=== PATIENT | female | born 1980 | race Two or more races ===

== ENCOUNTER 2024-08-29 23:15 | Emergency (ER) | payer MEDICAID, OTHER ==
[~2024-08-29] VITALS: Ht 167.6 cm; Wt 86.3 kg
[2024-08-29] MEDS: IBUPROFEN 600 MG TAB PO ONE (23:56)
--- NOTE | 2024-08-30 00:39 | DVH ---
CLINICAL INDICATION: RIGHT ANKLE SWELLING TECHNIQUE: XY R ANKLE 3 VIEW Comparison: None FINDINGS/IMPRESSION: : Obliquely oriented mildly displaced distal fibula fracture and mildly displaced fracture of the media l malleolus. Slight lateral subluxation of the talus relative to the tibial plafond. Borderline Widening of the me dial clear space which could be due to deltoid ligament injury. Moderate soft tissue swelling about the right ankle. Plantar calcaneal enthesophyte
[2024-08-30 01:44] VITALS: BP 136/86; PULSE 86; RESP 20; TEMP 98.5; O2SAT 99
[2024-08-30] MEDS ORDERED: IBUP-1456 PO (02:21)
--- NOTE | 2024-08-30 02:21 | ED.PDOC ---
Back pain HPI HPI Comments PT PRESENTED TO ED FOR RIGHT ANKLE PAIN AND SWELLING SINCE YESTERDAY S/P TWIST & FALL WHILE WEARING HIGH HEEL BOOTS. Chief Complaint: Lower Extremity Time Seen by MD: 23:21 Reviewed Notes: Nurses Notes, Medications, Allergies Allergies: Coded Allergies: No Known Drug Allergy (Verified Allergy, Unknown, 08/30/24) Home Meds Active Scripts Ibuprofen (Ibuprofen) 800 Mg Tab, 800 MG PO Q8HP PRN for 6 Days, #18 TAB Prov:KAREN DE LUNA [employer] 08/30/24 Information Source: Patient Mode of Arrival: Wheelchair Past Medical History PAST MEDICAL HISTORY: Denies Surgical History: Denies all surgeries EAR NOSE AND THROAT SPECIALIST History: No Pertinent EAR NOSE AND THROAT SPECIALIST History Family History Family History: Reviewed,noncontributory to illness Social History Smoker: Non-Smoker Alcohol: Denies ETOH Use Drugs: Denies Drug Use Constitutional: denies: chills, diaphoresis, fatigue, fever, malaise, sweats, weakness, others EENTM: denies: blurred vision, double vision, ear bleeding, ear discharge, ear drainage, ear pain, ear ringing, eye pain, eye redness, hearing loss, mouth pain, mouth swelling, nasal discharge, nose bleeding, nose congestion, nose pain, photophobia, tearing, throat pain, throat swelling, voice changes, others Respiratory: denies: cough, hemoptysis, orthopnea, SOB at rest, shortness of breath, SOB with excertion, stridor, wheezing, others Cardiovascular: denies: chest pain, dizzy spells, diaphoresis, Dyspnea on exertion, edema, irregular heart beat, left arm pain, lightheadedness, palpitations, PND, syncope, others Gastrointestinal: denies: abdomen distended, abdominal pain, blood streaked bowels, constipated, diarrhea, dysphagia, difficulty swallowing, hematemesis, melena, nausea, poor appetite, poor fluid intake, rectal bleeding, rectal pain, vomiting, others Genitourinary: denies: abnormal vagina bleeding, burning, dyspareunia, dysuria, flank pain, frequency, hematuria, incontinence, pain, , vagina discharge, urgency, others Neurological: denies: dizziness, fainting, headache, left sided numbness, left sided weakness, numbness, paresthesia, pre-existing deficit, right sided numbness, right sided weakness, seizure, speech problems, tingling, tremors, weakness, others Musculoskeletal: reports: joint pain, joint swelling; denies: back pain, gout, muscle pain, muscle stiffness, neck pain, others Integumetry: denies: bruises, change in color, change in hair/nails, dryness, laceration, lesions, lumps, rash, wounds, others Allergic/Immunocompromised: denies: Difficulty Healing, Frequent Infections, Hives, Itching, others Hematologic/Lymphatic: denies: anemia, blood clots, easy bleeding, easy bruising, swollen glands, others Endocrine: denies: excessive hunger, excessive sweating, excessive thirst, excessive urination, flushing, intolerance to cold, intolerance to heat, unexplained weight gain, unexplained weight loss, others Psychiatric: denies: anxiety, bipolar disorder, depression, hopeless, panic disorder, schizophrenia, sleepless, suicidal, others Physical Exam General Appearance: No Apparent Distress, Normal HEENT: Pharynx Normal Neck: Full Range of Motion, Non-Tender Respiratory: Lungs Clear, No Respiratory Distress, Normal Breath Sounds Cardiovascular: No Murmur, Normal Peripheral Pulses, Regular Rate/Rhythm Breast Exam: Deferred Gastrointestinal: Non Tender, Soft Genitalia: Deferred Pelvic: Deferred Rectal: Deferred Extremities: Normal capillary refill, Normal range of motion Musculoskeletal : Location: Right Extremity Location: Ankle (MODERATE SWELLING MEDIAL MALLEOLUS ASPECT WITH MODERATE TENDERNESS STRENGTH SENSORY AND [facility]ION [facility] Apperance: Normal Neurologic: Alert, No Motor Deficits, Normal Affect, Normal Mood, No Sensory Deficits Cerebellar Function: Normal Reflexes: Normal Skin: Dry, Normal Color, Warm Lymphatic: No Adenopathy Was a procedure done? Was a procedure done?: No ([facility]) Back Pain Differential Dx Differential Diagnosis: Fracture ([facility]), Musculoskeletal Pain ([facility]) X-Ray, Labs, Meds, VS Vital Signs Date Time Temp Pulse Resp B/P (MAP) Pulse Ox O2 Delivery O2 Flow Rate FiO2 08/30/24 01:44 98.5 86 20 136/86 (103) 99 98.5 08/29/24 23:51 98.2 104 16 139/85 (103) 99 98.2 X-Ray, Labs, Meds, VS Comment FINDINGS/IMPRESSION: : Obliquely oriented mildly displaced distal fibula fracture and mildly displaced fracture of the medial malleolus. Slight lateral subluxation of the talus relative to the tibial plafond. Borderline Widening of the medial clear space which could be due to deltoid ligament injury. Moderate soft tissue swelling about the right ankle. Plantar calcaneal enthesophyte PATIENT PLACED IN POSTERIOR SHORT-LEG SPLINT WITH STIRRUP CRUTCHES PROVIDED. SCRIPT TRIAL OF IBUPROFEN 800 MG ADVISED TAKE MEDICATIONS PRESCRIBED SIDE EFFECTS DISCUSSED. ADVISED ON RICE. ADVISED TO FOLLOW UP WITH HER PCP IN 3 DAYS FOR REFERRAL TO [facility]TH[facility] FOR CONSULT AND EVALUATION. ER RETURN PRECAUTIONS GIVEN PATIENT INDICATES UNDERSTANDING AGREES WITH DISCHARGE PLAN OF CARE. Time of 1ST Reevaluation: 23:31 Reevaluation 1ST: Unchanged Time of 2ND Reevaluation: 02:19 Reevaluation 2ND: Improved Patient Education/Counseling: Diagnosis, Treatment, Prognosis, Need For Follow Up Family Education/Counseling: Diagnosis, Treatment, Prognosis, Need For Follow Up SEPSIS Sepsis Screen Date sepsis recognized/suspect: Aug 29, 2024 Time Sepsis recognized/suspect: 2344 Recent Procedure: No On Antibiotic Therapy: No Respiratory Rate >20: No Heart Rate >90: No Temp<36 C (96.8 F) or >38.3 C: No SBP <90 or MAP <65 mmHG: No New Acute Mental Status Change: No Is the patient on CPAP, BIPAP,: No Physician Orders R Ankle 3 View (08/29/24 23:48) Splints (08/30/24 ) Vital Signs Date Time Temp Pulse Resp B/P (MAP) Pulse Ox O2 Delivery O2 Flow Rate FiO2 08/30/24 01:44 98.5 86 20 136/86 (103) 99 98.5 08/29/24 23:51 98.2 104 16 139/85 (103) 99 98.2 Departure 1 Departure Time of Disposition: 02:18 Impression: Primary Impression: Fracture of distal fibula Qualified Codes: S82.832A - Other fracture of upper and lower end of left fibula, initial encounter for closed fracture Additional Impression: Fracture of malleolus of left ankle Qualified Codes: S82.892A - Other fracture of left lower leg, initial encounter for closed fracture Disposition: HOME / SELF CARE / HOMELESS Condition: Stable e-Prescriptions Ibuprofen (Ibuprofen) 800 Mg Tab 800 MG PO Q8HP PRN for 6 Days, #18 TAB Prov: KAREN DE LUNA 08/30/24 Discharged With: Spouse Critical Care Note Critical Care Time?: No Stability Stability form required: No KAREN DE LUNA Aug 30, 2024 02:21
== END 2024-08-30 02:44 | disposition home or self-care (01) ==
LOC: ER 23:15
DX: S82.832A Other fracture of upper and lower end of left fibula, initial encounter for closed fracture (principal); S82.52XA Displaced fracture of medial malleolus of left tibia, initial encounter for closed fracture; S82.51XA Displaced fracture of medial malleolus of right tibia, initial encounter for closed fracture; X50.1XXA Overexertion from prolonged static or awkward postures, initial encounter; Y93.89 Activity, other specified; Y92.89 Other specified places as the place of occurrence of the external cause; Y99.8 Other external cause status
CPT/HCPCS: 29515; 73610